=== PATIENT | male | born 1990 | race Caucasian/White ===

== ENCOUNTER 2020-03-28 04:31 | Emergency (ER) | payer SELFPAY ==
[~2020-03-28] VITALS: Ht 172 cm; Wt 86.1 kg
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
[2020-03-28] MEDS ORDERED: KETOROLAC 60 MG/2 ML VIAL IM STA (07:12)
[2020-03-28] MEDS ORDERED: ORPHENADRINE 60 MG/2 ML (NORFLEX) AMP (ED ONLY) IM STA (07:17)
--- NOTE | 2020-03-28 07:35 | Diagnostic Imaging Report ---
EXAMINATION: CT cervical, thoracic and lumbar spine without contrast INDICATION: Back pain and neck stiffness related to lifting while at work. TECHNIQUE: CT scan was performed through the cervical, thoracic and lumbar spine without intravenous contrast, formatted in [address] scans use one or more of the following dose optimizing techniques: automated exposure control, MA and/or KvP adjustment based on a patient size and exam type, or iterative reconstruction. COMPARISON: None available. FINDINGS: CT CERVICAL SPINE: No fracture or acute osseous abnormality. Vertebral body heights are maintained. There is mild straightening of the normal cervical lordosis, which may be positional in nature. There is no evidence of subluxation. Degenerative changes are noted in the lower cervical spine at the C4-C5 through C6-C7 levels, with small concentric disc bulges noted at these levels. There is no significant central canal narrowing. There is no locked or perched facet. Regional soft tissues are unremarkable. There is no prevertebral soft tissue abnormality. CT THORACIC SPINE: No fracture or acute osseous abnormality. Vertebral body heights and intervertebral disc spaces are maintained. Spinal alignment is normal, without evidence of subluxation. No prominent arthritic change is noted. Regional soft tissues are normal. There is no prevertebral or paraspinal soft tissue abnormality. The visualized lungs are clear. Mild mosaic attenuation in the visualized lung gomez is likely related to atelectasis. CT LUMBAR SPINE: No fracture or acute osseous abnormality. Vertebral body heights and intervertebral disc spaces are maintained. There is normal lumbar lordosis. There is no significant central canal narrowing. There is no prevertebral or paraspinal soft tissue abnormality. The visualized bowel and solid organs are normal. Abdominal aorta is nonaneurysmal. IMPRESSION: No acute fracture or subluxation involving the cervical, thoracic or lumbar spine. Dictated by: Dictated on workstation # [id number]
[2020-03-28 07:52] LABS: BILIRUBIN,URINE NEGATIVE (NEGATIVE); CLARITY,URINE CLEAR; COLOR,URINE YELLOW; GLUCOSE, URINE (UA) NEGATIVE (NEGATIVE); KETONES,URINE TRACE (NEGATIVE); LEUKOCYTE ESTERASE ,URINE NEGATIVE (NEGATIVE); NITRITE,URINE NEGATIVE (NEGATIVE); PROTEIN,URINE NEGATIVE (NEGATIVE)
[2020-03-28 08:06] LABS: AMPHETAMINE SCREEN, URINE NEGATIVE (NEGATIVE); BARBITURATE SCREEN URINE NEGATIVE (NEGATIVE); BENZODIAZEPINES SCREEN URINE NEGATIVE (NEGATIVE); CANNABINOID SCREEN, URINE POSITIVE (NEGATIVE); COCAINE SCREEN URINE NEGATIVE (NEGATIVE); METHADONE STAT NEGATIVE (NEGATIVE); METHAMPHETAMINE SCREEN URINE S NEGATIVE (NEGATIVE); OPIATE SCREEN URINE NEGATIVE (NEGATIVE); OXYCODONE STAT NEGATIVE (NEGATIVE); PROPOXYPHENE STAT NEGATIVE (NEGATIVE); TRICYCLIC ANTIDEPRESSANTS SCRE NEGATIVE (NEGATIVE)
[2020-03-28 08:10] LABS: BACTERIA,URINE NEGATIVE /HPF; SQUAMOUS EPITHELIAL CELL,UR 0-2 /HPF; WBC,URINE 0-2 /HPF
[2020-03-28] MEDS ORDERED: CYCL10TA9 PO (08:14)
[2020-03-28 08:26] VITALS: BP 127/83
== END 2020-03-28 08:26 | disposition home or self-care (01) ==
LOC: ER 04:33
DX: S33.5XXA Sprain of ligaments of lumbar spine, initial encounter (principal); M54.16 Radiculopathy, lumbar region; F17.210 Nicotine dependence, cigarettes, uncomplicated; X50.1XXA Overexertion from prolonged static or awkward postures, initial encounter; Y92.59 Other trade areas as the place of occurrence of the external cause; Y99.0 Civilian activity done for income or pay
CPT/HCPCS: 72125; 72128; 72131; 80306; 81000

== ENCOUNTER 2020-10-20 12:34 | Emergency (ER) | payer OTHER ==
[~2020-10-20] VITALS: Ht 170.1 cm; Wt 86.1 kg
[~2020-10-20 12:34] MED LIST: CYCL10TA9 PO
[2020-10-20] MEDS ORDERED: morphine INJ 10 MG/ML 1ML (SYR OR VIAL) IVP STA ×2 (12:50→13:26)
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
[2020-10-20] MEDS ORDERED: TETANUS,DIPTH,PERTUSS P/F (BOOSTRIX) 0.5 ML VIAL IM ONE (13:00)
[2020-10-20] MEDS ORDERED: ceFAZolin INJECTION 1,000 MG in WATER (STERILE) FOR INJECTION 10 ML IV ONE (13:00)
[2020-10-20] MEDS ORDERED: ONDANSETRON 4 MG/2 ML (SDV) Z0FRAN IVP ONE (13:00)
[2020-10-20 13:09] LABS: BASOPHILS # (AUTO) 0.1 10^3/uL (0.0-0.1); BASOPHILS % (AUTO) 1 % (0-10); EOSINOPHILS # (AUTO) 0.1 10^3/uL (0.0-0.3); EOSINOPHILS % (AUTO) 1 % (0-10); HEMATOCRIT 45 % (40-54); HEMOGLOBIN 15.4 G/DL (13.3-17.7); LYMPHOCYTES # (AUTO) 3.5 X 10^3 (1.0-4.0); LYMPHOCYTES % (AUTO) 38 % (12-44); MEAN CORPUSCULAR HEMOGLOBIN 30 PG (25-34); MEAN CORPUSCULAR HGB CONC 34 G/DL (32-36); MEAN CORPUSCULAR VOLUME 87 FL (80-99); MEAN PLATELET VOLUME 11.2 FL (7.4-10.4); MONOCYTES # (AUTO) 0.7 X 10^3 (0.0-1.0); MONOCYTES % (AUTO) 7 % (0-12); NEUTROPHILS # (AUTO) 4.9 X 10^3 (1.8-7.8); NEUTROPHILS % (AUTO) 53 % (42-75); PLATELET COUNT 263 10^3/uL (130-400); WHITE BLOOD COUNT 9.2 10^3/uL (4.3-11.0)
[2020-10-20 13:26] LABS: BILIRUBIN,TOTAL 0.4 MG/DL (0.1-1.0); BUN/CREATININE RATIO 13; CALCIUM 9.5 MG/DL (8.5-10.1); CARBON DIOXIDE 24 MMOL/L (21-32); CHLORIDE 103 MMOL/L (98-107); CREATININE SERUM 1.12 MG/DL (0.60-1.30); GFR ESTIMATED > 60; GLUCOSE 121 MG/DL (70-105); SODIUM 140 MMOL/L (135-145)
[2020-10-20] MEDS ORDERED: LIDOCAINE 1% INJ 20 ML 20 ML VIAL ONE (13:26)
[2020-10-20 13:27] LABS: ALANINE AMINOTRANSFERASE 15 U/L (0-55); ALBUMIN 4.7 GM/DL (3.2-4.5); ALKALINE PHOSPHATASE 75 U/L (40-136)
[2020-10-20 13:30] LABS: ATYPICAL LYMPHOCYTES 6 %; BAND NEUTROPHILS 1 %; EOSINOPHILS % (MANUAL) 2 %; LYMPHOCYTES % (MANUAL) 30 %; MONOCYTES % (MANUAL) 7 %; NEUTROPHILS % (MANUAL) 54 %; RBC MORPH NORMAL
[2020-10-20] MEDS ORDERED: LIDOCAINE 1% INJ 20 ML 20 ML VIAL INJ ONE (13:45)
--- NOTE | 2020-10-20 13:48 | Diagnostic Imaging Report ---
INDICATION: Lacerations, chest wall pain. FINDINGS: There is no displaced rib fracture deformity or suspicious cortical lucency apparent. No visualized stepoff. No findings of a pleural hematoma. No hemothorax or pneumothorax. The left lung is clear. There is no free air beneath the left diaphragm. The cardiomediastinal and hilar contours appear normal. IMPRESSION: Unremarkable left rib series. Dictated by: Dictated on workstation # [id number]
--- NOTE | 2020-10-20 13:50 | Diagnostic Imaging Report ---
INDICATION: Pain. FINDINGS: A soft tissue injury at the level of the elbow joint is present. There is a dressing and there may be some superficial debris within the wound. No metallic foreign body. No fracture or dislocation. IMPRESSION: No acute bony abnormality. Soft tissue injury dressing and questionable findings for some superficial debris within the wound. Dictated by: Dictated on workstation # [id number]
--- NOTE | 2020-10-20 13:50 | Diagnostic Imaging Report ---
INDICATION: Chest and arm pain, lacerations. FINDINGS: Three-view left shoulder showed no fracture, dislocation, opaque foreign body, or abnormal gas. Alignment is normal. The articular surface is smooth. The visualized ribs and pleura are unremarkable. IMPRESSION: Unremarkable three-view left shoulder. Dictated by: Dictated on workstation # [id number]
--- NOTE | 2020-10-20 13:50 | Diagnostic Imaging Report ---
INDICATION: Lacerations, pain. FINDINGS: Two views of the left forearm show soft tissue irregularities overlying the antecubital fossa. There is likely some superficial debris but no metallic foreign body and no evidence for fracture. No findings of a joint effusion. IMPRESSION: Soft tissue irregularity and overlying dressing. There may be some superficial debris within the wound. No metallic foreign body or bony injury is apparent. Dictated by: Dictated on workstation # [id number]
[2020-10-20] MEDS ORDERED: HYDROmorphone 2 MG/ML VIAL (DILAUDID) IV ONE (14:00)
--- NOTE | 2020-10-20 14:04 | Diagnostic Imaging Report ---
INDICATION: Lacerations, arm pain, chest pain, traction injury. FINDINGS: There is no lung contusion, pneumothorax, or hemothorax. Cardiomediastinal and hilar contours were normal. No chest wall fracture deformity. No free air beneath the diaphragms. IMPRESSION: Negative. Dictated by: Dictated on workstation # [id number]
[2020-10-20] MEDS ORDERED: TRM50T PO (14:38)
[2020-10-20] MEDS ORDERED: CEPH500T PO (14:38)
[2020-10-20 14:42] VITALS: BP 138/73
[2020-10-20 15:07] LABS: CREATINE KINASE 121 U/L (30-200)
== END 2020-10-20 14:42 | disposition home or self-care (01) ==
LOC: EDUNIT# 12:34 → ER FS 12:36
DX: S41.112A Laceration without foreign body of left upper arm, initial encounter (principal); S20.20XA Contusion of thorax, unspecified, initial encounter; F17.210 Nicotine dependence, cigarettes, uncomplicated; Z23 Encounter for immunization; X50.1XXA Overexertion from prolonged static or awkward postures, initial encounter; Y92.69 Other specified industrial and construction area as the place of occurrence of the external cause
CPT/HCPCS: 36415; 71045; 71100; 73030; 73060; 80053; 82550; 85007; 85027; 90715

== ENCOUNTER 2020-10-31 14:31 | Emergency (ER) | payer OTHER ==
[~2020-10-31] VITALS: Ht 172 cm; Wt 95.0 kg
[~2020-10-31 14:31] MED LIST changes: +CEPH500T PO; +TRM50T PO
[2020-10-31 14:55] VITALS: BP 127/87
[2020-10-31] MEDS ORDERED: MUPIROCIN 2% OINT 22 GM (BACTROBAN) TUBE ONE (15:39)
[2020-10-31] MEDS ORDERED: SULF1TAB35 PO (15:39)
--- NOTE | 2020-10-31 15:39 | ED Suture Removal/Wound Check ---
Suture/Wound Re-check Suture Removal/Wound Recheck : Progress Sutures intact. No erythema, drainage or discharge at suture site. General Appearance: WD/WN, no apparent distress Skin Exam: normal color, warm/dry Physical Exam Vital Signs Vital Signs - First Documented 10/31/20 14:55 Temp 36.9 Pulse 96 Resp 18 B/P (MAP) 127/87 Pulse Ox 96 O2 Delivery Room Air Capillary Refill : General Appearance: WD/WN, no apparent distress Cardiovascular: regular rate, rhythm, no murmur Respiratory: lungs clear, normal breath sounds Neurologic/Psychiatric: no motor/sensory deficits, alert, normal mood/affect, oriented x 3 Skin: normal color, warm/dry Skin Problem Location: other (1cm circular abrasion with yellowish wound bed to underside of left upper arm. Tender to surrounding tissue. ) Departure Impression Primary Impression: Wound infection Disposition: HOME, SELF-CARE Condition: Stable Departure-Patient Inst. Decision time for Depature: 15:37 Referrals: NO,LOCAL PHYSICIAN (PCP/Family) Primary Care Physician Patient Instructions: Wound Care (DC) Add. Discharge Instructions: Plan: 1. Wash area with mild soap and water twice daily. Pat dry. Apply Bactroban ointment for 1 week. 2. Take antibiotics as directed and complete full course. 3. Drink plenty of fluids. 4. Return for any new or worsening symptoms. All discharge instructions reviewed with patient and/or family. Voiced understanding. Scripts Sulfamethoxazole/Trimethoprim (Bactrim Ds Tablet) 1 Each Tablet 1 EACH PO BID for 7 Days, #14 TAB 0 Refills Prov: ELY RODRIGUEZ APRN 10/31/20 ELY RODRIGUEZ BRIDGE [employer]OR October 31, 2020 15:39
[2020-10-31] MEDS ORDERED: MUPIROCIN 2% OINT 22 GM (BACTROBAN) TUBE NSEACH SCH (21:00)
== END 2020-10-31 16:00 | disposition home or self-care (01) ==
LOC: EDUNIT# 14:31 → ER 14:33
DX: T81.40XA Infection following a procedure, unspecified, initial encounter (principal)

== ENCOUNTER 2020-11-03 10:21 | Emergency (ER) | payer OTHER ==
[~2020-11-03] VITALS: Ht 172 cm; Wt 95.2 kg
[~2020-11-03 10:21] MED LIST changes: +SULF1TAB35 PO
[2020-11-03 10:28] VITALS: BP 166/86
== END 2020-11-03 11:02 | disposition home or self-care (01) ==
LOC: EDUNIT# 10:21 → ER 10:23
DX: Z48.02 Encounter for removal of sutures (principal)

== ENCOUNTER 2020-11-10 13:05 | Emergency (ER) | payer OTHER ==
[~2020-11-10] VITALS: Ht 172 cm; Wt 95.0 kg
--- NOTE | 2020-11-10 13:41 | ED Integumentary General ---
General Chief Complaint: Skin/Wound Problems Stated Complaint: WOUND CHECK Nursing Triage Note: PT HERE FOR WOUND. PT WAS SEEN HERE A WEEK AGO AND HAD STITCHES OUT. PT NOW REPORTS THAT WOUND IS ITCHY AND WOULD LIKE HIS WOUND RECHECKED. History of Present Illness Date Seen by Provider: November 10, 2020 Time Seen by Provider: 13:00 Initial Comments To ER for a wound check. He states that the wound is healing well he thinks. A little itchy. He is planning to move to [facility] and he wanted to confirm his thoughts that the wound looked good prior to moving. Timing/Duration: constant Severity: moderate Possible Cause: no cause identified Associated Symptoms: denies symptoms Allergies and Home Medications Allergies Coded Allergies: No Known Drug Allergies (Unverified , 03/28/20) Home Medications Cephalexin 500 Mg Tablet, 500 MG PO TID Prescribed by: NADEGE BILLY on 10/20/20 1438 Cyclobenzaprine HCl 10 Mg Tablet, 10 MG PO Q8H PRN for SPASMS Prescribed by: HORACIO SHABAZZ on 03/28/20 0814 Sulfamethoxazole/Trimethoprim 1 Each Tablet, 1 EACH PO BID Prescribed by: ELY RODRIGUEZ on 10/31/20 1539 Tramadol HCl 50 Mg Tablet, 50 MG PO Q6H PRN for PAIN Prescribed by: NADEGE BILLY on 10/20/20 1438 Patient Home Medication List Home Medication List Reviewed: Yes Review of Systems Review of Systems Constitutional: see HPI EENTM: see HPI Respiratory: no symptoms reported Cardiovascular: no symptoms reported Genitourinary: no symptoms reported Musculoskeletal: no symptoms reported Skin: no symptoms reported Psychiatric/Neurological: No Symptoms Reported Endocrine: No Symptoms Reported Past Nhpaffd-Wmbjwu-Taohfk Hx Patient Social History Alcohol Use: Occasionally Uses Number of Drinks Today: AA Alcohol Beverage of Choice: Beer Drug of Choice: MARIJUANA Smoking Status: Current Everyday Smoker Type Used: Cigarettes 2nd Hand Smoke Exposure: No Recent Infectious Disease Expo: No Recent Hopitalizations: No Seasonal Allergies Seasonal Allergies: No Past Medical History Surgeries: No Orthopedic Respiratory: No Cardiac: No Neurological: No Genitourinary: No Gastrointestinal: No Musculoskeletal: No Fractures Endocrine: No HEENT: No Cancer: No Psychosocial: No Integumentary: No Blood Disorders: No Physical Exam Vital Signs Vital Signs - First Documented 11/10/20 13:16 Temp 37.2 Pulse 100 Resp 20 B/P (MAP) 143/90 (107) Pulse Ox 96 O2 Delivery Room Air Capillary Refill : Less Than 3 Seconds General Appearance: WD/WN, no apparent distress Respiratory: no respiratory distress, no accessory muscle use Neurologic/Psychiatric: alert, normal mood/affect, oriented x 3 Skin: normal color, warm/dry Skin Problem Location: upper extremities (The wound just above the elbow to the medial aspect of the left arm is healing very well. Its intact without drainage or erythema.) Procedures/Interventions Suture Size: 4-0 Progress/Results/Core Measures Results/Orders Vital Signs/I&O 11/10/20 13:16 Temp 37.2 Pulse 100 Resp 20 B/P (MAP) 143/90 (107) Pulse Ox 96 O2 Delivery Room Air Blood Pressure Mean: 107 Departure Impression Primary Impression: Visit for wound care Disposition: HOME, SELF-CARE Condition: Stable Departure-Patient Inst. Decision time for Depature: 13:41 Referrals: NO,LOCAL PHYSICIAN (PCP/Family) Primary Care Physician Patient Instructions: Wound Care ED Add. Discharge Instructions: 1. This wound is healing wonderfully. I have no concerns about this. All discharge instructions reviewed with patient and/or family. Voiced u nderstanding. ANNELISEE ORNELAS APRN November 10, 2020 13:41
[2020-11-10 13:45] VITALS: BP 143/90
== END 2020-11-10 13:44 | disposition home or self-care (01) ==
LOC: EDUNIT# 13:05 → ER 13:07
DX: Z48.01 Encounter for change or removal of surgical wound dressing (principal); F17.210 Nicotine dependence, cigarettes, uncomplicated
CPT/HCPCS: 99282